=== PATIENT | male | born 1980 | race Caucasian/White ===

== ENCOUNTER 2022-11-14 13:15 | Emergency (ER) | payer OTHER, SELFPAY ==
[2022-11-14 13:23] VITALS: BP 146/90; PULSE 71; RESP 19; TEMP 36.6; O2SAT 98; BMI 24.0
--- NOTE | 2022-11-14 13:25 | ED.GENADULT ---
HPI - General Adult General Chief complaint: General Medical Stated complaint: wire in R calf Time Seen by Provider: 11/14/22 13:32 Source: patient Mode of arrival: ambulatory Limitations: no limitations History of Present Illness HPI narrative: Patient is a 41-year-old male with no past medical history presenting with question of foreign body to right lower leg. 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 States initially the foreign body was visible and he had soft tissue swelling. Swelling has since diminished and no visible foreign body is present externally at this time. Reports mild discomfort to the area. Denies any other complaints. complaint: foreign body right lower leg Onset (ago): hour(s) Location: lower extremity Radiation: non-radiation Severity: mild Quality: sharp Pain Consistency: intermittent Relieving factors: rest Exacerbating factors: movement Associated symptoms: denies other symptoms Treatments prior to arrival: none Related Data Previous Rx's Medication Instructions Recorded doxycycline hyclate 100 mg capsule 100 mg PO BID #10 caps 11/14/22 Allergies Allergy/AdvReac Type Severity Reaction Status Date / Time amoxicillin [AMOXICILLIN] Allergy Unknown HIVES Verified 11/14/22 13:22 cefaclor [From CECLOR] Allergy Unknown UNKNOWN Verified 11/14/22 13:22 Sulfa (Sulfonamide Allergy Unknown HIVES Verified 11/14/22 13:22 Antibiotics) [SULFA (SULFONAMIDE ANTIBIOTICS)] sulfamethoxazole Allergy Unknown UNKNOWN Verified 11/14/22 13:22 [From BACTRIM] trimethoprim [From BACTRIM] Allergy Unknown UNKNOWN Verified 11/14/22 13:22 sulfa Allergy Unknown Unknown Uncoded 11/14/22 13:22 Review of Systems Review of Systems: As per HPI. Yes all other systems are reviewed and are negative Constitutional: Constitutional: Reports as per HPI [facility] Social History Social History Advance Directives: No Advance Directives Information Provided: Yes Physical Exam ED Vital Signs: Vital Signs - 24 hr 11/14/22 13:23 Temperature 98 F Pulse Rate 71 Respiratory Rate 19 Blood Pressure 146/90 H Pulse Oximetry 98 Oxygen Delivery Method Room Air BMI result Body Mass Index 24.0 Vital signs have been reviewed and appear to be correct. Blood pressure mildly elevated. Heart rate normal. Respiratory rate normal. Temperature normal. Oxygen saturation normal. Const General: cooperative, healthy appearing and no acute distress Orientation/consciousness: oriented to person, oriented to place, oriented to time and patient oriented x3 Limitations: no limitations HENMT Head: Yes normocephalic and Yes atraumatic Ears: external ears normal General nose exam: Normal external nose present Face and sinus: Yes face symmetric Mouth: oropharynx normal and moist mucous membranes Throat: Yes uvula midline Eyes Pupils: Equal, round and reactive pupils present Neck Neck: Yes normal visual inspection and Yes supple Resp Effort & Inspection: normal respiratory effort and able to speak in complete sentences Auscultation: clear to auscultation bilaterally Cardio Rate: regular rate Rhythm: regular rhythm Heart sounds: S1 normal heart sound present and S2 normal heart sound present GI Palpation (GI): Soft to palpation and nontender Auscultation: normoactive bowel sounds General: Yes no CVA tenderness Back/Spine/Pelvis Back: no CVA tenderness Skin General skin exam: elasticity normal and turgor normal Neuro General: oriented to person, oriented to place, oriented to time, patient oriented x3, moves all extremities, no focal motor deficits and CN's II-XI intact bilaterally Cranial nerves: Yes Equal, round and reactive pupils present Cognition (Neuro): normal cognition Extrem Other: pinpoint puncture wound to proximal aspect of right lower leg medially, no surrounding erythema or calor, no drainage or discharge General: Yes full ROM, Yes no pedal edema and Yes no calf tenderness Upper/lower leg/hip images: 1. pinpoint puncture wound Psych Mental Status: mental status grossly normal Affect: normal affect Thought process: Normal thought process present Course Course Course Narrative: RME performed by Rebeca Banda PA-C. Patient is a 41 year old assigned male at presenting to the emergency department with possible wire bristle stuck in his right lower leg. Imaging ordered. Patient placed back in the waiting room pending room availability and results. Medications Administered Discontinued Medications Generic Name Dose Route Start Last Admin Trade Name Freq PRN Reason Stop Dose Admin Diphtheria/Tetanus/Acell Pertussis 0.5 ml 11/14/22 13:24 11/14/22 13:38 Diphth,Pertus(Acell),Tet Adult 0.5 Ml Syringe IM 11/14/22 13:25 0.5 ml .ONCE ONE Administration Medical Decision Making Medical Decision Making MDM Narrative: Patient is a 41-year-old male with no past medical history presenting with question of foreign body to right lower leg. On exam patient is awake, A+Ox3, VS WNL, afebrile, normal neurological exam without focal deficits,pinpoint puncutre wound to right medial proximal lower leg without surrounding erythema, calor, drainage. Given reported symptoms and physical exam findings, differential includes soft tissue foreign body, cellulitis, abscess. My interpretation of the X-ray is that it is notable for visible foreign body. Patient discharged prior to radiologist's interpretation. Discussed case with via [employer], he states will see the patient outpatient and schedule removal under fluoroscopy. Patient updated on all results and all questions answered. Tdap updated today. Prescribed prophylactic doxycycline as patient has multiple antibiotic allergies. Return precautions discussed at bedside. Patient verbalized understanding and agreement with plan. Differential Diagnosis Differential Diagnoses: The differential diagnosis associated with the presentation includes soft tissue foreign body, cellulitis, abscess Consult Healthcare Provider Management of the patient was discussed with: Bender Machine Operator (Dr. Ramos) Independent Interpretation I performed an independent interpretation of an: Plain X-Ray Interpretation: I independently reviewed the x-ray and agree with the radiologist's interpretation of foreign body. External Record Review External record reviewed: Inpatient record, Office record and Outpatient record Prescription Management I considered prescription management with: Antibiotic (keflex) Discharge Plan Discharge Clinical Impression: Foreign body of right lower leg Patient Disposition: Home, Self-Care Additional Instructions: Your x-ray revealed a foreign body to your right lower leg which will need to be removed by a surgeon under fluoroscopy. Please contact Dr. Ramos's office Wednesday morning to schedule an appointment. You are being prescribed prophylactic antibiotics to prevent infection. Please avoid touching or picking at the area. Keep area covered with a clean Band-Aid and assess area daily for any new redness, swelling, warmth or thick yellow drainage. Return to the emergency department if you develop any of the symptoms or redness streaking up your leg, or fever 100.4? F or greater or any other concerning symptoms. Prescriptions: New doxycycline hyclate 100 mg capsule 100 mg PO BID Qty: 10 0RF Referrals: Colton Ramos MD [Physician] -
[2022-11-14 15:21] VITALS: BP 118/76; PULSE 52; RESP 13; TEMP 36.1; O2SAT 100
== END 2022-11-14 15:26 | disposition home or self-care (01) ==
PROVIDERS: Emergency Provider Emergency Medicine Emergency Medical Services
DX: S81.841A Puncture wound with foreign body, right lower leg, initial encounter (principal); W45.8XXA Other foreign body or object entering through skin, initial encounter; Y93.89 Activity, other specified; Y92.9 Unspecified place or not applicable; Y99.9 Unspecified external cause status
CPT/HCPCS: 73590; 90471; 90715; 99283; 99284

== ENCOUNTER → 2022-11-20 09:50 | Outpatient (BNVA) | payer OTHER, SELFPAY | PROVIDERS: Visit Provider Surgery ==

== ENCOUNTER 2022-11-27 06:05 | Day surgery (SDC) | payer OTHER, SELFPAY ==
--- NOTE | 2022-11-26 16:09 | MHC.SHP ---
Pre-Procedural Eval Section A Date of Service: 11/26/22 The patient is an INPATIENT: No Changes since office visit: No Cold of Flu in the past 2 weeks, No New Medical Problems, No Changes in Medication and No Patient answered all questions The History & Physical has been completed within 30 days and I have reviewed it.: Yes Section B Chief Complaint: Residual foreign body in soft tissue Allergies: Allergies Allergy/AdvReac Type Severity Reaction Status Date / Time amoxicillin [AMOXICILLIN] Allergy Unknown HIVES Verified 11/20/22 10:17 cefaclor [From CECLOR] Allergy Unknown UNKNOWN Verified 11/20/22 10:17 Sulfa (Sulfonamide Allergy Unknown HIVES Verified 11/20/22 10:17 Antibiotics) [SULFA (SULFONAMIDE ANTIBIOTICS)] sulfamethoxazole Allergy Unknown UNKNOWN Verified 11/20/22 10:17 [From BACTRIM] trimethoprim [From BACTRIM] Allergy Unknown UNKNOWN Verified 11/20/22 10:17 sulfa Allergy Unknown Unknown Uncoded 11/20/22 10:17 Plan I have reviewed the history and physical and performed a pertinent physical examination on my patient. No changes have occurred unless specified. Time Spent With Patient Time: Total time managing care of this patient today ____ minutes.
--- NOTE | ~2022-11-27 | FL_ITS ---
EXAMINATION: XR FLUOROSCOPY WITH IMAGES CLINICAL INFORMATION: Foreign body removal right calf COMPARISON: None available. TECHNIQUE: Fluoroscopy Supervised By: Dr. Zambrano. Fluoroscopy Time: 109.24 seconds. Cumulative Dose: 6.4740 mGy. DAP: 0.3913 Gycm2. Images: 1. FINDINGS: Single oblique fluoroscopic image of the right lower leg. No foreign body visualized. FL/FL guidance in OR IMPRESSION: Fluoroscopy guidance for foreign body removal.
[2022-11-27 06:14] VITALS: BMI 24.1
[2022-11-27 06:31] VITALS: BP 111/76; PULSE 56; RESP 15; TEMP 36.3; O2SAT 99
[2022-11-27] MEDS: Lactated Ringers 1,000 ML 100 ML IVCONT (06:48)
--- NOTE | 2022-11-27 08:02 | P.OP_ITS ---
Operative Note Operative Note Date of Service: 11/27/22 Narrative: Preoperative diagnosis: [] foreign body/several cm length wire right proximal medial calf Postop diagnosis: [] same Procedure [] removal foreign body right proximal calf with fluoroscopy Surgeon: [] Juan Manuel Green Building Materials Designer: [] Type of Anesthesia: [] MAC Indication for surgery: [] deeply situated wire and right proximal medial calf. Uneventful removal. Findings: [] Patient brought to the operating room, placed on operative table in supine position, after adequate level of MAC anesthesia was induced, the right proximal calf and knee area were prepped and draped in usual sterile fashion. Using fluoroscopy and the local anesthetic needle as a guide, the area of the foreign body was identified and infiltrated with 0.5% Marcaine/ 1% lidocaine. The finder needle demonstrated the trajectory which was downwardly and medially. Small incision was made at the skin entry site proximal to this and using a tonsil clamp, dissection under fluoroscopic guidance to the foreign body was performed where it was grasped and uneventfully retrieved. Specimen sent to pathology. Postprocedure film was taken to document that the foreign body was completely removed . Wound was irrigated with Betadine solution , secured hemostasis,and the skin incision site was closed using a single interrupted inverted dermal 3-0 Vicryl suture followed by Steri-Strips and sterile dressing. Sponge, needle, and instrument counts reported correct. Patient tolerated the procedure well. EBL 0
[2022-11-27 08:10] VITALS: BP 108/62; PULSE 62; RESP 16; TEMP 36.2; O2SAT 97
[2022-11-27 08:25] VITALS: BP 96/60; PULSE 60; RESP 16; O2SAT 99
[2022-11-27 08:40] VITALS: BP 100/56; PULSE 55; RESP 16; TEMP 36.2; O2SAT 100
== END 2022-11-27 09:06 | disposition home or self-care (01) ==
PROVIDERS: Visit Provider Surgery
PROC: (CPT 10120; principal; 2022-11-27 07:30)
DX: M79.5 Residual foreign body in soft tissue (principal); Z88.1 Allergy status to other antibiotic agents; Z88.2 Allergy status to sulfonamides
CPT/HCPCS: 10120; 88300; J2795

== ENCOUNTER → 2022-11-27 06:05 | Outpatient (BNV) | payer OTHER, SELFPAY | PROVIDERS: Visit Provider Surgery | DX: S80.851A Superficial foreign body, right lower leg, initial encounter (principal) | CPT/HCPCS: 10120; 76000 ==

== ENCOUNTER 2022-12-07 09:23 | Outpatient (AMB) | payer OTHER, SELFPAY ==
[2022-12-07 09:28] VITALS: BP 138/81; PULSE 65
--- NOTE | 2022-12-07 09:28 | MHC.OFFVIS ---
Intake Vital Signs 12/07/22 09:28 Weight 168 lb BP 138/81 Blood Pressure Location Rt brachial Position Sitting Pulse 65 Intake Visit Reasons: S/P removal foreign body Rt calf Intake Note: Patient here s/p removal of foreign material from Rt calf. Reports incision scar healing well. C/o on and off swelling. Data Warehouse Administrator Required: No Accompanied by: Self / Same As Patient Allergies amoxicillin [AMOXICILLIN] Allergy (Unknown, Verified 12/07/22 09:29) HIVES cefaclor [From CECLOR] Allergy (Unknown, Verified 12/07/22 09:29) UNKNOWN Sulfa (Sulfonamide Antibiotics) [SULFA (SULFONAMIDE ANTIBIOTICS)] Allergy (Unknown, Verified 12/07/22 09:29) HIVES sulfamethoxazole [From BACTRIM] Allergy (Unknown, Verified 12/07/22 09:29) UNKNOWN trimethoprim [From BACTRIM] Allergy (Unknown, Verified 12/07/22 09:29) UNKNOWN sulfa Allergy (Unknown, Uncoded 12/07/22 09:29) Unknown HPI HPI Comments History of Present Illness Details Patient presents for follow-up. He unfortunately states that he has not been inactive. He has been ripping up decks, and working very hard. He has minimal incisional discomfort. He has had some mild swelling at the end of a 10 hour day. This resolves with recumbency the morning. PFSH Medical History No pertinent past medical history Surgical History Hx of eye surgery Hx of wisdom tooth extraction Social History Patient Tobacco Use Status: Never used Tobacco Physical Exam Vital Signs: Last Vital Signs Pulse 65 12/07/22 09:28 BP 138/81 12/07/22 09:28 Extrem Other: Wound clean dry and intact. Mild ecchymosis. Extremity neurovascularly within normal limits. Assessment & Plan Assessment & Plan (1) Foreign body (FB) in soft tissue: Code(s): M79.5 - Residual foreign body in soft tissue Plan Patient has once again been given local instructions and avoid strenuous activities and allow is extremity to heal. He will follow-up p.r.n. Coding Level of Care Code Global (04313) Diagnoses Foreign body (FB) in soft tissue M79.5
== END 2022-12-07 10:11 | disposition home or self-care (01) ==
PROVIDERS: Visit Provider Surgery
DX: M79.5 Residual foreign body in soft tissue (principal)
CPT/HCPCS: 99024

== ENCOUNTER → 2022-12-07 09:23 | Outpatient (BNVA) | payer OTHER, SELFPAY | PROVIDERS: Visit Provider Surgery ==